=== PATIENT | male | born 1995 | race Caucasian/White ===

== ENCOUNTER 2025-02-05 09:36 | Day surgery (SDC) | payer BC ==
[2025-02-05] MEDS ORDERED: Sodium Chloride 0.9% 10 ML Syringe FLUSH PRN (09:45)
[2025-02-05] MEDS: Lactated Ringers 1,000 ML IV SCH (10:35)
[2025-02-05] MEDS ORDERED: Propofol 200 MG/20 ML SDV ONE (11:14)
[2025-02-05] MEDS ORDERED: Midazolam 1 MG/ML 2 ML SDV ONE (11:14)
== END 2025-02-05 13:13 | disposition home or self-care (01) ==
LOC: KA.SDS 09:36
PROVIDERS: ATTEND Family Medicine
DX: K64.8 Other hemorrhoids (principal); K92.1 Melena; R19.4 Change in bowel habit; Z91.011 Allergy to milk products; Z79.899 Other long term (current) drug therapy
CPT/HCPCS: 00811; J2250; J2704; J7120